=== PATIENT | male | born 1975 ===

== ENCOUNTER 2017-07-04 11:53 | Emergency (ER) | payer OTHER ==
[2017-07-04 12:09] VITALS: BP 113/73; PULSE 75; RESP 16; TEMP 97.8; O2SAT 99
--- NOTE | 2017-07-04 12:37 | ED PDOC ---
HPI: Back Time Seen by Provider: 07/04/17 11:53 Chief Complaint (Nursing): Back Pain Chief Complaint (Provider): Back Pain History Per: Patient History/Exam Limitations: no limitations Onset/Duration Of Symptoms: Days Current Symptoms Are (Timing): Still Present Additional Complaint(s): 42 year old male presents to the emergency department with a complaint of an intermittent left sided back pain x6 months that has worsened since today. Reports pain is frequent in the morning and worsens when he bends. States he takes Tylenol or Motrin with minimal relief. Denies radiation of pain, bowel or bladder incontinence, urinary symptoms, paresthesias, weakness, fever, or trauma. Past Medical History Reviewed: Historical Data, Nursing Documentation, Vital Signs Vital Signs: Last Vital Signs Temp 97.8 F 07/04/17 12:07 Pulse 75 07/04/17 12:07 Resp 16 07/04/17 12:07 BP 113/73 07/04/17 12:07 Pulse Ox 99 07/04/17 12:07 - Medical History PMH: No Chronic Diseases - Surgical History Surgical History: No Surg Hx - Family History Family History: States: Unknown Family Hx - Social History Current smoker - smoking cessation education provided: No Alcohol: Occasional Drugs: Denies - Home Medications Home Medications: Ambulatory Orders Medication Instructions Recorded Cyclobenzaprine [Cyclobenzaprine 10 mg PO TID PRN #15 tab 07/04/17 HCl] Naproxen 500 mg PO BID #30 tab 07/04/17 - Allergies Allergies/Adverse Reactions: Allergies Allergy/AdvReac Type Severity Reaction Status Date / Time No Known Allergies Allergy Verified 07/04/17 12:07 Review of Systems ROS Statement: Except As Marked, All Systems Reviewed And Found Negative (As per HPI, otherwise negative) Constitutional: Negative for: Fever, Other (trauma) Genitourinary Male: Negative for: Dysuria, Frequency, Incontinence (bladder or bowel), Hematuria Musculoskeletal: Positive for: Back Pain (Left sided). Negative for: Other ( radiation of pain) Neurological: Negative for: Weakness (Paresthesias) Physical Exam - Reviewed Nursing Documentation Reviewed: Yes Vital Signs Reviewed: Yes - Physical Exam Appears: Positive for: Non-toxic, No Acute Distress Head Exam: Positive for: NORMAL INSPECTION, NORMOCEPHALIC Skin: Positive for: Normal Color, Warm, Dry Neck: Positive for: Normal, Supple Cardiovascular/Chest: Positive for: Regular Rate, Rhythm. Negative for: Murmur Respiratory: Positive for: Normal Breath Sounds. Negative for: Accessory Muscle Use, Wheezing, Respiratory Distress Gastrointestinal/Abdominal: Positive for: Normal Exam, Soft. Negative for: Tenderness Back: Positive for: Other (Tenderness noted to the lumbar spine and left paralumbar region). Negative for: Normal Inspection Neurologic/Psych: Positive for: Alert, Oriented (x3) - ECG O2 Sat by Pulse Oximetry: 99 (RA) Pulse Ox Interpretation: Normal Medical Decision Making Medical Decision Making: Time: 1234 Initial impression: Back pain Initial plan: --LS Spine with OBL x-ray --L hip / pelvis x-ray --Reevaluation XR lumbar spine / L hip / pelvis: ordered, but refused by the patient. Diagnosis of back pain and sciatica discussed with the patient. Patient advised to follow up with the clinic in 1-2 days without fail. Advised to take medication as prescribed. Return to the emergency room at any time for any new or worsening symptoms. Patient states he fully agrees with and understands discharge instructions. States that he agrees with the plan and disposition. Verbalized and repeated discharge instructions and plan. I have given the patient opportunity to ask any additional questions. Time: 1356 Patient medically clear for discharge. Given Rx for Cyclobenzaprine HCl 10 mg PO and Naproxen 500 mg. Clinical Impression: back pain, likely sciatica Scribe Attestation: Documented by Tayla Roberts, acting as a scribe for Ramya Kline PA-C Provider Scribe Attestation: All medical record entries made by the Scribe were at my direction and personally dictated by me. I have reviewed the chart and agree that the record accurately reflects my personal performance of the history, physical exam, medical decision making, and the department course for this patient. I have also personally directed, reviewed, and agree with the discharge instructions and disposition. Disposition - Clinical Impression Clinical Impression: Back pain - Patient ED Disposition Is Patient to be Admitted: No Counseled Patient/Family Regarding: Studies Performed, Diagnosis, Need For Followup, Rx Given - Disposition Referrals: [facility] [Outside] Disposition: Routine/Home Disposition Time: 13:56 Condition: STABLE Additional Instructions: Thank you for letting us take care of you today. You were treated for back pain. The emergency medical care you received today was directed at your acute symptoms. If you were prescribed any medication, please fill it and take as directed. It may take several days for your symptoms to resolve. Return to the Emergency Department if your symptoms worsen, do not improve, or if you have any other problems. Please contact the clinics you have been referred to that are listed on the Patient Visit Information form that is included in your discharge packet. Bring any paperwork you were given at discharge with you along with any medications you are taking to your follow up visit. Our treatment cannot replace ongoing medical care by a primary care provider (PCP) outside of the emergency department. Thank you for allowing the [facility] team to be part of your care today. If you had an X-Ray: A Radiologist will review the ED reading if any change in treatment is needed we will contact you. Prescriptions: Cyclobenzaprine [Cyclobenzaprine HCl] 10 mg PO TID PRN #15 tab PRN Reason: Muscle Spasm Naproxen 500 mg PO BID #30 tab Instructions: Back Pain (ED) Forms: [employer] (Scottish), [facility] ED School/Work Excuse Print Language: MONEGASQUE
--- NOTE | 2017-07-04 14:13 | RAD ---
PROCEDURE: Radiographs of the Lumbar Spine. HISTORY: pain COMPARISON: No prior. FINDINGS: BONES: Normal alignment. Bilateral L5 pars interarticularis defects. No listhesis. DISC SPACES: L4-5 and L5-S1 narrowing. OTHER FINDINGS: None. IMPRESSION: No acute fracture. Lower lumbar degenerative changes. Chronic L5 pars interarticularis defects.
== END 2017-07-04 14:10 | disposition home or self-care (01) ==
LOC: H.ER 11:53
DX: M54.9 Dorsalgia, unspecified (principal)